=== PATIENT | male | born 1945 | race Caucasian/White ===

== ENCOUNTER 2023-08-14 17:09 | Outpatient (CLI) | payer MEDICARE, SELFPAY ==
--- NOTE | ~2023-08-14 | XR_ITS ---
EXAM: XR hand RT min 3V DATE: 08/14/2023 17:24 HISTORY: S61.209A - Unspecified open wound of unspecified finger w... . COMPARISON: None available. FINDINGS: Normal mineralization. Scapholunate widening. Well-corticated ossific fragment dorsal to t he proximal carpal row, possibly an old triquetral fracture fragment. No acute fracture or dislocatio n. No lytic or blastic lesion. 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 No erosio n or periosteal change. Soft tissue swelling and nailbed irregularity over the tip of the third digit . IMPRESSION: No acute osseous finding in the left hand. No radiographic evidence of osteomyelitis. Reviewed, dictated and finalized at location K.
== END 2023-08-14 17:10 | disposition home or self-care (01) ==
LOC: ANHIMG 17:13
PROVIDERS: PCP Family Medicine; Visit Provider Physician Assistant Surgical
DX: S61.401A Unspecified open wound of right hand, initial encounter (principal); X58.XXXA Exposure to other specified factors, initial encounter
CPT/HCPCS: 73130

== ENCOUNTER 2023-08-22 13:34 | Outpatient (CLI) | payer MEDICARE, SELFPAY ==
--- NOTE | ~2023-08-22 | MR_ITS ---
EXAMINATION: MR hand RT wo/w con DATE: 08/22/2023 15:08 INDICATION: Gangrene at the middle finger of the right hand TECHNIQUE: Magnetic resonance imaging (MRI) of the right hand was performed without and with 15 mL Mu ltihance intravenous contrast. Sequences included axial, sagittal and coronal T1-weighted FSE and T2- weighted FS FSE, axial T1-weighted FS FSE and postcontrast axial, sagittal and coronal T1-weighted FS FSE. COMPARISON: None FINDINGS: Tear of the scapholunate ligament with fluid filling the widened scapholunate interval. Bone alignmen t is otherwise normal. No fracture. There is some bandaging material about the distal aspect of the t hird distal phalanx. There is nonspecific mild edema and enhancement at the tuft of the distal phalan x without evident cortical erosion on the prior radiographs or geographic loss of T1 marrow fat signa l on the current study to more specifically suggest osteomyelitis. There is mild polyarticular osteoa rthritis involving multiple joints the carpus and multiple metacarpophalangeal and interphalangeal bisi ints. There are some likely associated mild subarticular edema-like signal change at the proximal lilia e of the scaphoid and at both sides of the third metacarpophalangeal joint. Small joint effusion at t he dorsal aspect of the triscaphe joint. Otherwise physiologic amount fluid in the joint spaces. No t enosynovitis or other abnormal fluid collections. The visualized portions of the flexor and extensor tendons are normal. There is thickening of the radial and ulnar collateral ligament complex at the se cond-fifth metacarpophalangeal and proximal interphalangeal joints. There are some periarticular eros ions at the heads of the second and third metacarpals. IMPRESSION: 1. Mild increased fluid signal and enhancement at the distal aspect of the right third distal phalanx and could not exclude early osteophytosis although there is no evident cortical erosion on the prior radiographs or geographic loss of T1 fat signal to more specifically suggest this and this is more l ikely reactive. 2. 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 3. Mild polyarticular osteoarthritis throughout the right hand. 4. Periarticular erosions at the heads of the second and third metacarpals along with thickening of t he radial and ulnar collateral ligament complex at the second and fifth metacarpophalangeal and proxi mal interphalangeal joints which suggests possible inflammatory arthropathy or enthesitis. Reviewed, dictated and finalized at location A. IMPRESSION: 1. Mild increased fluid signal and enhancement at the distal aspect of the righ t third distal phalanx and could not exclude early osteophytosis although there is no evident cortical erosion on the prior radiographs or geographic loss of T1 fat signal to more specifically suggest this and this is more likely reactiv e. 2. Scapholunate ligament insufficiency with widening of the scapholunate interv al. 3. Mild polyarticular osteoarthritis throughout the right hand. 4. Periarticular erosions at the heads of the second and third metacarpals yulisa g with thickening of the radial and ulnar collateral ligament complex at the se cond and fifth metacarpophalangeal and proximal interphalangeal joints which holley ggests possible inflammatory arthropathy or enthesitis.
== END 2023-08-22 13:35 | disposition home or self-care (01) ==
PROVIDERS: PCP Family Medicine; Visit Provider Physician Assistant Surgical
DX: S61.209A Unspecified open wound of unspecified finger without damage to nail, initial encounter (principal); M19.041 Primary osteoarthritis, right hand; M85.841 Other specified disorders of bone density and structure, right hand
CPT/HCPCS: 73220; A9577

== ENCOUNTER 2023-09-17 14:01 | Outpatient (CLI) | payer MEDICARE, SELFPAY ==
--- NOTE | ~2023-09-17 | XR_ITS ---
PA, oblique, and lateral views of the right third finger CLINICAL HISTORY: Wound FINDINGS: No fracture or dislocation seen. Suspected focal erosive change at the ulnar aspect of the distal tuft of the third distal phalanx. There is minimal degenerative change of the third PIP and DI P joints. There is diffuse soft tissue swelling of the third digit. IMPRESSION: Suspected focal osteomyelitis of the distal aspect of the third distal phalanx with focal erosive toni nge is lucency present. Diffuse soft tissue swelling of the third digit. Mild degenerative changes, as above. Reviewed, dictated and finalized at location . IMPRESSION: Suspected focal osteomyelitis of the distal aspect of the third distal phalanx with focal erosive change is lucency present. Diffuse soft tissue swelling of the third digit. Mild degenerative changes, as above.
== END 2023-09-17 14:02 | disposition home or self-care (01) ==
PROVIDERS: PCP Family Medicine; Visit Provider Physician Assistant Surgical
DX: M19.041 Primary osteoarthritis, right hand (principal); M79.89 Other specified soft tissue disorders
CPT/HCPCS: 73140

== ENCOUNTER 2024-01-22 08:51 | Outpatient (CLI) | payer MEDICARE, SELFPAY ==
--- NOTE | ~2024-01-22 | XR_ITS ---
XR finger 3rd RT min 2V Ordering provider: Savanah Nunez PA-C History: . NO INJURY, BLOOD CLOT X6 MONTHS AGO IN [place]EARM . Comparison: September 17, 2023 FINDINGS: BONES: No acute fracture or dislocation. No definite evidence of osteomyelitis. Small erosive area se en in the tuft of the distal phalanx medially unchanged. Sclerotic bony protrusion is seen in the ant erior aspect of the middle phalanx of the middle finger which may be due to old fracture. Periostitis is is not excluded. Unchanged from previous examination. JOINT SPACES: Osteoarthritic changes of the proximal and distal interphalangeal joints. SOFT TISSUES: Soft tissue swelling is seen in the medial finger. IMPRESSION: No acute osseous abnormality. No significant change from previous examination. Reviewed, dictated and finalized at location A.
== END 2024-01-22 08:52 | disposition home or self-care (01) ==
PROVIDERS: PCP Nurse Practitioner Family; Visit Provider Physician Assistant Surgical
DX: S61.209A Unspecified open wound of unspecified finger without damage to nail, initial encounter (principal); X58.XXXA Exposure to other specified factors, initial encounter
CPT/HCPCS: 73140

== ENCOUNTER 2024-02-06 15:00 | Outpatient (CLI) | payer MEDICARE, SELFPAY ==
--- NOTE | 2024-02-06 15:30 | ECG_ITS ---
Test Date: 2024-02-06 15:21:38 Measurements Intervals [place] Rate: 85 P: -2 CA: 149 QRS: -60 QRSD: 113 T: 65 QT: 362 QTc: 431 Interpretive Statements SINUS RHYTHM WITH OCCASIONAL VENTRICULAR PREMATURE COMPLEXES MARKED LEFT AXIS DEVIATION [QRS AXIS < -30] INCOMPLETE LEFT BUNDLE BRANCH BLOCK No previous ECG available for comparison Electronically Signed On 02-07-2024 09:37:56 CDT by Jonelle Doherty M.D.
== END 2024-02-06 15:01 | disposition home or self-care (01) ==
LOC: ANHSURGERY 15:04
PROVIDERS: PCP Nurse Practitioner Family; Visit Provider Plastic Surgery
DX: Z01.810 Encounter for preprocedural cardiovascular examination (principal); R94.31 Abnormal electrocardiogram [ECG] [EKG]; I49.3 Ventricular premature depolarization; I44.7 Left bundle-branch block, unspecified; I10 Essential (primary) hypertension
CPT/HCPCS: 93005

== ENCOUNTER 2024-02-13 00:22 | Day surgery (SDC) | payer MEDICARE, SELFPAY ==
--- NOTE | 2024-02-04 08:13 | PC.NURSE ---
Report to the Outpatient Waiting Room, entrance under the green pavilion located off [facility], at time _7:15 AM on date 02/13/24 . Planned Procedure Time: _9:15 AM .? Time changes happen often and if your time is changed the preop area will call you the afternoon before. - You and your visitor will be asked to self-screen and do not enter if you have any COVID symptoms. Please call surgeon if you need to reschedule. - A mask is optional within the hospital at this time. NOTHING TO EAT OR DRINK 8 HOURS PRIOR TO SURGERY PER DR HIDALGO Take only the following medications with a SIP of water on the morning of surgery: _AMLODIPINE,ISOSORBIDE,METOPROLOL DO NOT STOP ANY OF YOUR OTHER PRESCRIPTION MEDICATIONS PRIOR TO SURGERY EXCEPT THE FOLLOWING Medications to discontinue per physician __PATIENT TO CALL DR HIDALGO REGARDING ASPIRIN AND XARELTO. HOLD ALL VITAMINS 3 DAYS PRE OP LAST DOSE02/09/24 Please no make-up, nail sammarinese, hairspray, perfume, deodorant, or body powder the day of surgery.? No jewelry (including any body piercings) or valuables the day of surgery, leave them at home.? Please take a shower or bath the night before, or the morning of, surgery with an antibacterial soap.? Wear comfortable, loose fitting clothing.? Children are encouraged to wear pajamas. - Jewelry must be removed prior to entering the operating room.? Rings and piercings that are not removed may be cut off. - The hospital will not accept responsibility for valuables.? - Please leave all valuables, including medications, at home the day of surgery. If you are going home after surgery, a licensed security patrol driver must drive you home.? - NO public transportation without another adult if you receive anesthesia. - We recommend that an adult stay with you for 24 hours following discharge. - We also recommend that you do not drive, make important decision, drink alcoholic beverages, or take any drugs that were not prescribed by your health care provider for at least 24 hours after your discharge time. For Pediatric surgeries, we recommend two adults accompany the child home. Follow any additional instructions given to you from your surgeon. Telephone instructions given to __PATIENT and asked if any additional questions and then verbalized understanding. Patient advised to call surgeon office or pre surgery nurse liaison [phone] if any additional questions.
[2024-02-04 08:24] VITALS: BMI 36.0
--- NOTE | 2024-02-13 06:59 | P.OP_ITS ---
Procedure Note - Detailed Date of Procedure 02/13/24 Pre-op Diagnosis right finger complicated open wound Post-op Diagnosis Same Procedure Performed right middle finger nailplate avulsion, partial distal phalanx amputation and nailbed reconstruction Surgeon Abeba Vargas MD Cabinet Abrasive Sandblaster christopher weber pa-c Anesthesia MAC Description of Procedure INFORMED CONSENT: The patient was seen and examined and marked in the pre-op area.? The patient signed the consent form. PROCEDURE IN DETAIL:The patient taken back to OR on the stretcher in supine position. Time out performed with anesthesia, surgeon and staff agreeing on patient's name site and surgery to be performed SCDs were placed on the lower extremities and inflated. A tourniquet was placed on {right} upper extremity and antibiotics given IV After anesthesia administered sedation I injected {4}cc 1%lido and 0.5% marcaine plain for digital block in the palm The?{right upper extremity}?was prepped and draped in sterile fashion the??{right upper extremity} was? exsanguinated with Esmarch bandage and tourniquet inflated to 250mmHg Using a combination of 15 blade scalpel and [place] elevator I detached the right middle finger nail plate from the nail fold and sterile matrix. The right middle finger nail plate was completely avulsed to expose the defect of the sterile matrix and hyponychial junction. Using a 15 blade scalpel I made an incision on the superior aspect of the defect and suspected exposed epithelialized distal phalanx in order to elevate the sterile matrix off the area of concern. An incision was made below this defect in the hypomanic game through skin and dermis with a 15 blade scalpel. Rongeur was then used to resect this portion of the distal phalanx and debride the wound to healthier bleeding bone. I excised the distal portion of thickened irregular, scarred sterile matrix and subcutaneous scar tissue on the deep side of the hyponyuchium. The finger was soaked in Betadine peroxide and saline mixture for 5 minutes. I proceeded with reconstruction of the nail bed and hyponychium usi ng 5-0 chromic sutures.. A dressing of xeroform, 4x4, rambo, and tube gauze was applied after the tourniquet was let down noting the hand was warm and well perfused. The patient was then awaken from anesthesia and transferred to the recovery room in stable condition.? Complications - none EBL- 0cc Disposition - home in stable conditions christopher weber pa-c was essential for positioning, retraction, closure and dressing placement G Billing Surgery - Charge Forward: Surgery Billing ([id number], [id number], [id number] same for christopher modifier )
--- NOTE | 2024-02-13 06:59 | WPDHPUPDATE1 ---
History and Physical Update Update Date/Time: 02/13/24 06:59 Patient seen and examined in pre-operative holding area. No interval change in medical history or symptoms. Patient recalls previous discussion of benefits and alternatives to procedure. Continues to desire to proceed with right middle finger debridement and closure possible adjacent tissue transfer . Reviewed procedure, post-op expectations and risks including but not limited to bleeding, infection, injury to tendon/nerve/vessel, decreased hand function, stiffness, RSD, no change or worsening of symptoms. I discussed the possible use of assistants and their participation in the case. Patient stated understanding and signed the consent form wishing to proceed.
[2024-02-13 07:11] VITALS: BP 148/65; PULSE 78; RESP 20; TEMP 36.3; O2SAT 100
[2024-02-13] MEDS: LACTATED RINGERS 1,000 ML 30 ML IV CONT (08:05)
--- NOTE | 2024-02-13 09:00 | WPDANESEPPF ---
Anes - Initial Pre Proc Eval Procedure: Operation Date: 02/13/24 09:15 Proposed Procedures p Right Middle Finger Debridement and Closure, Possible Adjacent Tissue Transfer - Abeba Vargas MD Date/Time: 02/13/24 09:00 Surgeon: Abeba Vargas MD Pre Op Diagnosis: right finger complicated open wound Patient Data Age: 79 Gender: M Height: 1.7 m Weight: 100.8 kg Last Vital Signs Temp 36.3 C L 02/13/24 07:11 Pulse 78 02/13/24 07:11 Resp 20 02/13/24 07:11 BP 148/65 H 02/13/24 07:11 Pulse Ox 100 02/13/24 07:11 O2 Del Method Room Air 02/13/24 07:11 Allergies Allergy/AdvReac Type Severity Reaction Status Date / Time levofloxacin Allergy Unknown Gastrointestinal Verified 02/04/24 07:50 Upset azithromycin AdvReac Unknown Gastrointestinal Verified 02/04/24 07:50 Upset phenylpropanolamine AdvReac Gastrointestinal Verified 02/04/24 07:50 [From Tetra] Upset simvastatin [From Zocor] AdvReac leg cramps Verified 02/13/24 07:53 Home Medications Medication Instructions Recorded Confirmed Type aspirin 81 mg tablet,delayed 81 mg PO DAILY 11/25/21 02/13/24 History release (Adult Low Dose Aspirin) cetirizine 10 mg tablet (Zyrtec) 10 mg PO DAILY #7 tabs 11/25/21 02/13/24 Rx benazepril 20 mg tablet 20 mg PO DAILY 07/02/23 02/13/24 History metoprolol tartrate 50 mg tablet 25 mg PO BID 10/29/23 02/13/24 History diclofenac sodium 75 mg See Rx Instructions .Route 12/18/23 02/13/24 Rx tablet,delayed release .COMPLEX #180 tabs tramadol 50 mg tablet 50 mg PO Q6H PRN pain #60 tabs 12/31/23 02/13/24 Rx amlodipine 5 mg tablet 5 mg PO BID 01/11/24 02/13/24 History isosorbide mononitrate 120 mg 120 mg PO BID #60 tabs 01/11/24 02/13/24 Rx tablet,extended release 24 hr pantoprazole 40 mg tablet,delayed See Rx Instructions .Route 01/14/24 02/13/24 Rx release .COMPLEX #90 tabs fluticasone propionate 50 See Rx Instructions .Route .COMPLEX 01/22/24 02/04/24 History mcg/actuation nasal spray,suspension ezetimibe 10 mg tablet See Rx Instructions .Route 01/28/24 02/13/24 Rx .COMPLEX #90 tabs rivaroxaban 20 mg tablet (Xarelto) 20 mg PO DAILY 02/04/24 02/13/24 History sulfamethoxazole 800 1 tablet PO Q12H #28 tabs 02/04/24 02/13/24 Rx mg-trimethoprim 160 mg tablet (Bactrim DS) vitamins A,C,M-hftk-hyygvx 2,148 1 tablet PO DAILY 02/04/24 02/13/24 History mcg-113 mg-45 mg-17.4 mg tablet (PreserVision AREDS) Patient hx anesthesia problems: none Family hx anesthesia problems: none Results Review: All pre-operative results and documents have been reviewed as part of the pre-operative evaluation. [facility] Past Medical History Medical History Burn of left ear drum CAD (coronary artery disease) Carpal tunnel syndrome Dyslipidemia GERD (gastroesophageal reflux disease) Heart attack Hernia Hypertension Impaired fasting glucose Left shoulder tendonitis Osteoarthritis Prostate CA Radial artery occlusion, right Weight loss advised Surgical History Surgical History H/O heart bypass surgery H/O total knee replacement Family History Family History Father Acute myocardial infarction Father Heart disease Social History Social History Social History: Caffeine-coffee Smoking packs per day: 1 Smoking cigarettes per day: 20.0 Years smoked: 20 Smoking pack-years: 20.00 Smoking status: Former smoker Tobacco type: cigarettes Smoking end date: 04/16/82 Alcohol intake: current Drinks per week: 1 Alcohol use details: !-2 beers monthly Substance use: never Substance use type: does not use Do You Feel Safe in your Home?: Yes Lack of Transportation: No Lack of Food: Never True Current Housing: I Have Housing Concerned About Future Housing: No Difficulty Paying Gas/Electric Bills: No Difficulty Paying for Meds: No Currently Unemployed: No Education: High School Diploma/GED Difficulty w/ Childcare or Family Care: No Living arrangements: with family Occupation/Education: retired Gender identity (if verbalized by the patient): Male Sexual Orientation (if Verbalized by the Patient): Straight or Heterosexual Spiritual care concerns: No Anes - Eval Final PreProcedure Day of Procedure 02/13/24 09:00 Patient weight: obese Heart: regular rate and rhythm Lungs: clear to auscultation and normal air movement Airway: Mallampati scale class 1 Neurological: alert and oriented Last oral intake: >/= 8 hours ASA classification: III Emergent: no Anesthetic plan: proceed Anesthesia type and monitoring: general GIVS Results Review: All pre-operative results and documents have been reviewed as part of the pre-operative evaluation. Informed Consent: The patient's anesthetic plan and its attendant risks and benefits were discussed with the patient/family/POA. Questions were solicited and answers provided to the satisfaction of the patient/family/POA.
[2024-02-13] MEDS: ceFAZolin 2 GM/D5W 50 ML 2 GM/50 ML BAG IVPB (09:07)
[2024-02-13] MEDS: LIDOCAINE HCL 1% LOCAL INJ 20 ML VIAL 5 ML INFILTRATE (09:19)
[2024-02-13] MEDS: BUPivacaine HCL 0.5% PF 30 ML VIAL 5 ML INFILTRATE (09:20)
[2024-02-13 09:35] VITALS: BP 98/60; PULSE 63; RESP 20
[2024-02-13 10:05] VITALS: BP 108/84; PULSE 70; RESP 20
[2024-02-13 10:27] VITALS: BP 131/68; PULSE 68; RESP 20
== END 2024-02-13 10:35 | disposition home or self-care (01) ==
PROVIDERS: PCP Nurse Practitioner Family; Visit Provider Plastic Surgery
PROC: (CPT 26951; principal; 2024-02-13 09:15)
DX: S61.302A Unspecified open wound of right middle finger with damage to nail, initial encounter (principal); M86.9 Osteomyelitis, unspecified; X58.XXXA Exposure to other specified factors, initial encounter; I10 Essential (primary) hypertension; I25.10 Atherosclerotic heart disease of native coronary artery without angina pectoris; E78.5 Hyperlipidemia, unspecified; I25.2 Old myocardial infarction; K21.9 Gastro-esophageal reflux disease without esophagitis; Z85.46 Personal history of malignant neoplasm of prostate; Z95.1 Presence of aortocoronary bypass graft; Z87.891 Personal history of nicotine dependence; E66.9 Obesity, unspecified; Z68.34 Body mass index [BMI] 34.0-34.9, adult; Z79.82 Long term (current) use of aspirin
CPT/HCPCS: 26951; 88304; 88307; 88311; 88342; A9270; J0690; J2003; J2004; J2704; J3010; J7120

== ENCOUNTER 2024-03-11 09:42 | Outpatient (CLI) | payer MEDICARE, SELFPAY ==
--- NOTE | ~2024-03-11 | XR_ITS ---
XR finger 3rd RT min 2V Ordering provider: Savanah Nunez PA-C History: . FOLLOW UP FOR OPEN WOUND DISTAL RIGHT 3RD FINGER . Comparison: None. FINDINGS: BONES: No acute fracture or dislocation. JOINT SPACES: Narrowing of the proximal and distal interphalangeal joints. SOFT TISSUES: Normal. IMPRESSION: No acute osseous abnormality. Osteoarthritic changes of the proximal and distal interphalangeal joints. Reviewed, dictated and finalized at location A. 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
== END 2024-03-11 09:43 | disposition home or self-care (01) ==
LOC: ANHIMG 09:46
PROVIDERS: PCP Nurse Practitioner Family; Visit Provider Physician Assistant Surgical
DX: S61.202A Unspecified open wound of right middle finger without damage to nail, initial encounter (principal); M19.041 Primary osteoarthritis, right hand; X58.XXXA Exposure to other specified factors, initial encounter
CPT/HCPCS: 73140